=== PATIENT | female | born 1990 | race American Indian/Alaskan Native ===

== ENCOUNTER 2017-10-19 13:33 | Emergency (ER) | payer SELFPAY ==
[2017-10-19 14:33] VITALS: BP 119/56
[2017-10-19] MEDS ORDERED: BOOSTRIX IM ONE (16:09)
--- NOTE | 2017-10-19 16:12 | Emergency Department Report ---
ED Lower Extremity HPI - General Chief Complaint: Extremity Injury, Lower Stated Complaint: LEFT FOOT INJURY Time Seen by Provider: 10/19/17 16:08 Source: patient, EMS Mode of arrival: Ambulatory Limitations: No Limitations - History of Present Illness Initial Comments: 27-year-old female past medical history past medical history none presents with complaint of laceration to left distal great toe. Patient states while walking down staircase at a hotel there was a jay nail that she agrees with her left toe by accident while walking downstairs. Visible laceration to left distal great toe. Patient does not know her last tetanus update. No other injury sustained. Patient ambulatory without assistance. MD Complaint: other (left great toe laceration) -: This afternoon Injury: Toes: Left (left distal great toe) Type of Injury: blunt Place: street/outdoors Severity: moderate Severity scale (0 -10): 5 Context: stepped on nail Associated Symptoms: ambulatory - Related Data Previous Rx's Medication Instructions Recorded Last Taken Type Cephalexin [Keflex] 500 mg PO Q12HR #14 cap 10/19/17 Unknown Rx Ibuprofen [Motrin] 600 mg PO Q8H PRN #20 tablet 10/19/17 Unknown Rx Allergies Allergy/AdvReac Type Severity Reaction Status Date / Time No Known Allergies Allergy Unverified 10/19/17 14:30 ED Review of Systems ROS: Stated complaint: LEFT FOOT INJURY Other details as noted in HPI Constitutional: denies: chills, fever Eyes: denies: eye pain, eye discharge, vision change ENT: denies: ear pain, throat pain Respiratory: denies: cough, shortness of breath, wheezing Cardiovascular: denies: chest pain, palpitations Endocrine: no symptoms reported Gastrointestinal: denies: abdominal pain, nausea, diarrhea Genitourinary: denies: urgency, dysuria, discharge Musculoskeletal: denies: back pain, joint swelling, arthralgia Skin: denies: rash, lesions Neurological: denies: headache, weakness, paresthesias Psychiatric: denies: anxiety, depression Hematological/Lymphatic: denies: easy bleeding, easy bruising ED Past Medical Hx - Past Medical History Previous Medical History?: No - Surgical History Past Surgical History?: No - Social History Smoking Status: Never Smoker Substance Use Type: None - Medications Home Medications: Home Medications Medication Instructions Recorded Confirmed Last Taken Type Cephalexin [Keflex] 500 mg PO Q12HR #14 cap 10/19/17 Unknown Rx Ibuprofen [Motrin] 600 mg PO Q8H PRN #20 tablet 10/19/17 Unknown Rx ED Physical Exam - General Limitations: No Limitations General appearance: alert, in no apparent distress - Head Head exam: Present: atraumatic, normocephalic - Eye Eye exam: Present: normal appearance, PERRL, EOMI - ENT ENT exam: Present: mucous membranes moist - Neck Neck exam: Present: normal inspection - Respiratory Respiratory exam: Present: normal lung sounds bilaterally. Absent: respiratory distress - Cardiovascular Cardiovascular Exam: Present: regular rate, normal rhythm. Absent: systolic murmur, diastolic murmur, rubs, gallop - GI/Abdominal GI/Abdominal exam: Present: soft, normal bowel sounds - Extremities Exam Extremities exam: Present: normal inspection - Expanded Lower Extremity Exam Left Lower Leg exam: Present: normal inspection, full ROM Ankle exam: Present: normal inspection, full ROM Foot/Toe exam: Present: laceration (laceration to the left distal great toe region) Neuro vascular tendon exam: Present: no vascular compromise 1 - Semicircular laceration here - Back Exam Back exam: Present: normal inspection - Neurological Exam Neurological exam: Present: alert, oriented X3 - Psychiatric Psychiatric exam: Present: normal affect, normal mood - Skin Skin exam: Present: warm, dry, intact, normal color. Absent: rash ED Course Vital Signs 10/19/17 14:30 Temperature 98.2 F Pulse Rate 66 Respiratory 18 Rate Blood Pressure 119/56 O2 Sat by Pulse 100 Oximetry - Laceration /Wound Repair Left Distal Toe Wound Location: lower extremity (left distal great toe) Wound Length (cm): 2 Wound's Depth, Shape: superficial, stellate Irrigated w/ Saline (ccs): 500 Anesthesia: 1% Lidocaine Volume Anesthetic (ccs): 6 Wound Debrided: minimal Suture Size/Type: 5:0, proline Number of Sutures: 3 Layer Closure?: No Progress: Area infiltrated with lidocaine. Cleaned with iodine and saline solution. 3 sutures placed. Good wound closure achieved. The edges of the wound covered with Dermabond. Tolerated well. ED Lower Extremity MDM - Medical Decision Making A/P: Left great toe laceration 1- tetanus updated today 2- Motrin, Keflex 3- sutures to be removed in 10-14 days 4- and advised to return to the ED for any fevers chills pus drainage erythema at site of laceration. Patient ambulating without difficulty Critical care attestation.: If time is entered above; I have spent that time in minutes in the direct care of this critically ill patient, excluding procedure time. ED Disposition Clinical Impression: Toe laceration Qualifiers: Encounter type: initial encounter Toe: great toe Damage to nail status: without damage Foreign body presence: without foreign body Laterality: left Qualified Code(s): S91.112A - Laceration without foreign body of left great toe without damage to nail, initial encounter Disposition: TO HOME OR SELFCARE Is pt being admited?: No Does the pt Need Aspirin: No Condition: Stable Instructions: Suture Care (ED), Laceration (ED), Skin Adhesive Care (ED) Additional Instructions: Sutures to be removed in 10-14 days. Patient can return to the ED for suture removal. Prescriptions: Cephalexin [Keflex] 500 mg PO Q12HR #14 cap Ibuprofen [Motrin] 600 mg PO Q8H PRN #20 tablet PRN Reason: Pain Referrals: [facility] [Provider Group] - 3-5 Days Forms: Work/School Release Form(ED) Time of Disposition: 17:00
[2017-10-19] MEDS ORDERED: TRIPLE ANTIBIOTIC TP ONE (16:15)
[2017-10-19] MEDS ORDERED: XYLOCAINE 1% 20 mL INFILTRATI ONE (16:15)
[2017-10-19] MEDS ORDERED: XYLOCAINE 1% MPF 5 mL ONE (16:15)
[2017-10-19] MEDS ORDERED: XYLOCAINE 1% MPF 5 mL INFILTRATI ONE (16:22)
== END 2017-10-19 17:19 | disposition home or self-care (01) ==
LOC: ED 13:33
DX: S91.112A Laceration without foreign body of left great toe without damage to nail, initial encounter (principal); W45.0XXA Nail entering through skin, initial encounter; Y93.01 Activity, walking, marching and hiking; Y99.8 Other external cause status; Y92.59 Other trade areas as the place of occurrence of the external cause
CPT/HCPCS: 90471; 90715; A6250

== ENCOUNTER 2017-11-03 14:11 | Emergency (ER) | payer SELFPAY ==
--- NOTE | 2017-11-03 16:55 | Emergency Department Report ---
ED Recheck HPI - General Chief Complaint: Laceration/Recheck/Suture Stated Complaint: SUTURE REMOVAL Time Seen by Provider: 11/03/17 16:43 Source: patient Mode of arrival: Ambulatory Limitations: No Limitations - History of Present Illness Initial Comments: Patient here reported that she had stitches placed 14 days ago at this hospital after she stepped on a sharp object. Stiches in left great toe. She says she is here today to have stitches removed. She said stitches placed 10/19/2017 at this hospital. Her tetanus shot was updated . She says she was placed on antibiotic and Motrin. Denies any fever or chills. She said she didn't have any pain and there are no new symptoms. Denies any numbness or tingling to toe. Complaint: suture/staple removal Onset/Timin -: days(s) Initial Visit For: laceration Returns Today for: staple/Stitch removal Symptoms Since Prior Visit: no new symptoms Context: planned re-check Associated Symptoms: none Treatments Prior to Arrival: Given Antibiotics on, Given Pain Meds on - Related Data Previous Rx's Medication Instructions Recorded Last Taken Type Cephalexin [Keflex] 500 mg PO Q12HR #14 cap 10/19/17 Unknown Rx Ibuprofen [Motrin] 600 mg PO Q8H PRN #20 tablet 10/19/17 Unknown Rx Allergies Allergy/AdvReac Type Severity Reaction Status Date / Time No Known Allergies Allergy Unverified 10/19/17 14:30 ED Review of Systems ROS: Stated complaint: SUTURE REMOVAL Other details as noted in HPI Constitutional: denies: chills, fever ENT: throat pain Respiratory: denies: cough, shortness of breath, SOB with exertion, SOB at rest , wheezing Cardiovascular: denies: chest pain, palpitations Musculoskeletal: denies: back pain, joint swelling, arthralgia Skin: other (stitches to left great toe. 3 stitches). denies: rash, lesions Neurological: denies: numbness, paresthesias ED Past Medical Hx - Past Medical History Previous Medical History?: Yes Hx Psychiatric Treatment: Yes (schizophernia) - Surgical History Past Surgical History?: No - Family History Family history: hypertension - Social History Smoking Status: Never Smoker Substance Use Type: None - Medications Home Medications: Home Medications Medication Instructions Recorded Confirmed Last Taken Type Cephalexin [Keflex] 500 mg PO Q12HR #14 cap 10/19/17 Unknown Rx Ibuprofen [Motrin] 600 mg PO Q8H PRN #20 tablet 10/19/17 Unknown Rx ED Physical Exam - General Limitations: No Limitations General appearance: alert, in no apparent distress - Head Head exam: Present: atraumatic, normocephalic, normal inspection - Eye Eye exam: Present: normal appearance, PERRL, EOMI - ENT ENT exam: Present: normal exam, normal orophraynx, mucous membranes moist - Neck Neck exam: Present: normal inspection, full ROM. Absent: tenderness, lymphadenopathy - Respiratory Respiratory exam: Present: normal lung sounds bilaterally. Absent: respiratory distress, chest wall tenderness - Cardiovascular Cardiovascular Exam: Present: regular rate, normal rhythm, normal heart sounds - Extremities Exam Extremities exam: Present: normal inspection, full ROM, normal capillary refill , other (no clubbing, cyanosis or edema. +2 pulses to all extremities and no neurovascular compromise). Absent: tenderness, pedal edema, joint swelling, calf tenderness - Neurological Exam Neurological exam: Present: alert, oriented X3, normal gait - Psychiatric Psychiatric exam: Present: normal affect, normal mood - Skin Skin exam: Present: warm, dry, intact, normal color, other (noticed that she has plantar aspect of left great toe 3. Wound healed. No dehisced. Nontender to palpate) - Expanded Skin Exam Expanded Type of lesion: Present: laceration (with stitches) Distribution of rash: other (left great toe) Description of rash: Absent: tenderness, erythematous, swelling, discharge, fluctuant, indurated ED Course Vital Signs 11/03/17 14:17 Temperature 98.4 F Pulse Rate 72 Respiratory 18 Rate Blood Pressure 131/72 O2 Sat by Pulse 99 Oximetry - Reevaluation(s) Reevaluation #1: 11/03/17 17:00 3 stitches removed from left great toe and patient tolerated well. Area cleansed with saline and then a dressing applied to site. ED Recheck MDM - Medical Decision Making Patient has been evaluated by this provider in fast track. She is here for stitches removal. She has 3 stitches to her left great toe plantar aspect without any signs of infection and wound edges together and healing well. Nontender to palpate. Stitches of oh from left great toe. Area cleansed with saline and bandage dressing applied patient tolerated well. Patient reports that she is not having any pain and she completed her antibiotic. She doesn't have a primary care physician so told her to follow up at [facility] for any primary care issues I discussed with her that if area becomes red, swollen, drainage, increased pain to return to the hospital. Patient given discharge instruction on diagnosis and she voiced understanding and to follow up at [facility] for primary care visit in 3-5 days. Critical care attestation.: If time is entered above; I have spent that time in minutes in the direct care of this critically ill patient, excluding procedure time. ED Disposition Clinical Impression: Encounter for removal of sutures Disposition: TO HOME OR SELFCARE Is pt being admited?: No Does the pt Need Aspirin: No Condition: Stable Instructions: Suture Removal (ED) Additional Instructions: Please keep affected area clean and dry Follow up with outside Medical Center in 3-5 days Area below left great toe become red, tender, drainage, swelling, numbness and open return to the emergency room. Referrals: PRIMARY CARE, [Primary Care Provider] - 3-[address] [facility] [Outside] - 3-5 Days Forms: Work/School Release Form(ED)
[2017-11-03 17:49] VITALS: BP 112/62
== END 2017-11-03 17:40 | disposition home or self-care (01) ==
LOC: ED 14:11
DX: S91.112D Laceration without foreign body of left great toe without damage to nail, subsequent encounter (principal); F20.9 Schizophrenia, unspecified; X58.XXXD Exposure to other specified factors, subsequent encounter